=== PATIENT | female | born 2000 | race Caucasian/White ===

== ENCOUNTER 2025-05-30 18:38 | Emergency (ER) | payer BC ==
[2025-05-30 18:56] LABS: APPEARANCE,URINE CLOUDY (CLEAR); GLUCOSE,URINE NEGATIVE (NEGATIVE); OCCULT BLOOD,URINE NEGATIVE (NEGATIVE)
[2025-05-30 19:03] LABS: SQUAMOUS EPITHELIAL CELLS,UR MODERATE /HPF (NOT SEEN)
== END 2025-05-30 20:15 ==
LOC: CC.ED 18:38
DX: O23.41 Unspecified infection of urinary tract in pregnancy, first trimester (principal); N39.0 Urinary tract infection, site not specified; Z3A.01 Less than 8 weeks gestation of pregnancy
CPT/HCPCS: 81001; 81025; 87086; 87088; 87186; 96372; 99285; J0696; J2003

== ENCOUNTER 2025-07-17 09:13 | Emergency (ER) | payer BC ==
[2025-07-17 10:19] VITALS: BP 112/73; PULSE 93
== END 2025-07-17 10:16 | disposition home or self-care (01) ==
LOC: CC.ED 09:13
DX: O26.851 Spotting complicating pregnancy, first trimester (principal); Z79.82 Long term (current) use of aspirin; Z79.899 Other long term (current) drug therapy; Z87.891 Personal history of nicotine dependence; Z3A.12 12 weeks gestation of pregnancy
CPT/HCPCS: 99284

== ENCOUNTER 2025-07-19 18:07 | Emergency (ER) | payer BC ==
[2025-07-19 18:47] LABS: APPEARANCE,URINE SLIGHTLY CLOUDY (CLEAR); GLUCOSE,URINE NEGATIVE (NEGATIVE); OCCULT BLOOD,URINE NEGATIVE (NEGATIVE)
[2025-07-19 18:52] LABS: EPITHELIAL CELLS,URINE FEW /HPF (NOT SEEN)
[2025-07-19] MEDS: Take Home: Cephalexin 500 MG Cap, 6 Cap Pack PO ONE (19:28)
== END 2025-07-19 19:35 | disposition home or self-care (01) ==
LOC: CC.ED 18:07
DX: O23.41 Unspecified infection of urinary tract in pregnancy, first trimester (principal); Z79.899 Other long term (current) drug therapy
CPT/HCPCS: 81001; 87086; 87088; 87186; 99283; 99284; A9270-GY

== ENCOUNTER 2025-07-27 18:40 | Emergency (ER) | payer BC ==
[2025-07-27 19:09] LABS: BASOPHILS ABSOLUTE AUTO 0.03 10^3/uL (0.00-0.50); BASOPHILS PERCENT AUTO 0.3 % (0-1); EOSINOPHILS ABSOLUTE AUTO 0.02 10^3/uL (0.00-1.50); EOSINOPHILS PERCENT AUTO 0.2 % (0-6); IMMATURE GRAN ABSOLUTE AUTO 0.02 10^3/uL (0.00-0.49); IMMATURE GRAN PERCENT AUTO 0.2 % (0.0-4.9); LYMPHOCYTES ABSOLUTE AUTO 2.55 10^3/uL (0.60-5.00); LYMPHOCYTES PERCENT AUTO 22.3 % (24-44); MONOCYTES ABSOLUTE AUTO 0.80 10^3/uL (0.00-1.50); MONOCYTES PERCENT AUTO 7.0 % (0-10); NEUTROPHILS ABSOLUTE AUTO 8.01 x10^3/uL (1.80-8.00); NEUTROPHILS PERCENT AUTO 70.0 % (41-71); PLATELET COUNT,PLT 362 10^3/uL (150-400); RED BLOOD CELL COUNT 4.09 x10^6/uL (4.00-5.50); WHITE BLOOD CELL COUNT,WBC 11.4 10^3/uL (4.0-11.0)
[2025-07-27 19:15] LABS: APPEARANCE,URINE CLOUDY (CLEAR); GLUCOSE,URINE NEGATIVE (NEGATIVE); OCCULT BLOOD,URINE NEGATIVE (NEGATIVE)
[2025-07-27 19:21] LABS: EPITHELIAL CELLS,URINE MANY /HPF (NOT SEEN)
[2025-07-27 19:24] LABS: ALANINE AMINOTRANSFERASE,ALT 26.0 U/L (12-78); ASPARTATE AMNIOTRANSFERASE,AST 13.0 U/L (15-37); BILIRUBIN TOTAL 0.3 mg/dL (0.0-1.0); BLOOD UREA NITROGEN,BUN 8.0 mg/dL (7-18); CARBON DIOXIDE,CO2 21.0 mmol/L (21-32); CHLORIDE,CL 104.0 mEq/L (98-106); CREATININE 0.7 mg/dL (0.6-1.0); EST CRCL DRUG DOSING (CG) 99.7 mL/min; ESTIMATED GFR 125.0 mL/min (>=60); GLUCOSE RANDOM 90.0 mg/dL (75-99); POTASSIUM,K 3.5 mEq/L (3.5-5.0); PROTEIN TOTAL,TP 6.5 g/dL (6.4-8.2); SODIUM,NA 139.0 mEq/L (136-145)
== END 2025-07-27 19:45 | disposition home or self-care (01) ==
LOC: CC.ED 18:40
DX: O23.41 Unspecified infection of urinary tract in pregnancy, first trimester (principal); N39.0 Urinary tract infection, site not specified; Z79.82 Long term (current) use of aspirin; Z3A.13 13 weeks gestation of pregnancy
CPT/HCPCS: 36415; 80053; 81001; 85025; 87086; 87088; 87186; 99284